=== PATIENT | female | born 1945 | race Caucasian/White ===

== ENCOUNTER 2018-01-01 05:58 | Day surgery (SDC) | payer MEDICARE ==
[2017-12-27 16:21] LABS: BASOPHILS % (AUTO) 0.7 % (0-1); EOSINOPHILS # (AUTO) 0.1 X10'3 (0-0.9); EOSINOPHILS % (AUTO) 1.8 % (0-6); LYMPHOCYTES # (AUTO) 2.7 X10'3 (1.1-4.8); LYMPHOCYTES % (AUTO) 40.4 % (21-51); MEAN CORPUSCULAR HEMOGLOBIN 29.8 PG (27.0-31.0); MEAN CORPUSCULAR HGB CONC 34.4 % (33.0-36.5); MEAN CORPUSCULAR VOLUME 86.6 FL (78-98); MEAN PLATELET VOLUME 8.4 FL (7.4-10.4); MONOCYTES # (AUTO) 0.5 X10'3 (0-0.9); NEUTROPHILS # (AUTO) 3.3 X10'3 (1.8-7.7); NEUTROPHILS % (AUTO) 49.1 % (42-75); PRE OP HEMOGLOBIN 12.7 g/dL (12.0-16.0); PRE OP PLATELET COUNT 238 X10'3 (140-440); RED BLOOD COUNT 4.28 X10'6 (4.20-5.60); RED CELL DISTRIBUTION WIDTH 14.2 % (11.5-14.5)
[2017-12-27 16:38] LABS: ALBUMIN 3.8 G/DL (3.4-5.0); ALKALINE PHOSPHATASE 95 IU/L (46-116); BLOOD UREA NITROGEN 16 MG/DL (7-18); BUN/CREATININE RATIO 18.6 (6.6-38.0); CALCIUM 9.4 MG/DL (8.5-10.1); CHLORIDE 103 MMOL/L (99-107); CREATININE 0.86 MG/DL (0.40-0.90); PRE OP ALT 18 U/L (30-65); PRE OP ANION GAP 9 (8-16); PRE OP AST 16 U/L (10-37); PRE OP BILIRUB, TOTAL 0.4 MG/DL (0.0-1.0); PRE OP GLUCOSE 88 MG/DL (70-104); PRE OP SODIUM 139 MMOL/L (135-145); TOTAL CARBON DIOXIDE 27.3 MMOL/L (24-32); TOTAL PROTEIN 7.6 G/DL (6.4-8.2); eGFR 65 ML/MIN
[2018-01-01] VITALS (16 sets, daily range): BP systolic 104–149; BP diastolic 50–89
[~2018-01-01] VITALS: Ht 167.6 cm; Wt 68.9 kg
[~2018-01-01 05:58] MED LIST: CETI10TA18 PO; DICY10CA14 PO; DIPH25CA6 PO; DOCU100C41 PO; DOXY100C2 PO; FLUT16SP2 BOTHNARES; GLUC1CAP36 PO; LACT1CAP74 PO; LEVO100T PO; MAGN400C PO; MULT-38 PO; POLY1DRO2 OP; PRAV40TA3 PO; RESTASIS EACHEYE; ceFOXitin 2 GM ADDvantage bag 100 ML IV ONE; famotidine 20mg tablet PO ONE; ringers solution, lacted 1,000 ML IV SCH
[2018-01-01] MEDS ORDERED: clindamycin phosphate 40gm vag cream ONE (06:39)
[2018-01-01] MEDS ORDERED: vasoPRESSIN 20 units/ml inj. ONE (06:40)
[2018-01-01] MEDS ORDERED: ceFAZolin 1000mg inj ONE (06:40)
[2018-01-01] MEDS ORDERED: BUPIVAcaine/PF 2.5mg/ml (0.25%) 10ml vial ONE (06:40)
[2018-01-01] MEDS ORDERED: morphine 10mg/ml inj. ONE (06:40)
[2018-01-01] MEDS ORDERED: LIDOcaine 1% 30ml preserv. free vial ONE (06:40)
[2018-01-01] MEDS ORDERED: midazolam 2 mg/2 ml injection ONE (07:50)
[2018-01-01] MEDS ORDERED: fentaNYL/PF 50MCG/1 ML 2ML syringe ONE (07:50)
[2018-01-01] MEDS ORDERED: ondansetron/PF 4mg/2ml inj ONE ×2 (07:51→08:08)
[2018-01-01] MEDS ORDERED: propofol inj 20 ML IV ONE (07:51)
[2018-01-01] MEDS ORDERED: glycopyrrolate 0.2mg/ml inj ONE (07:51)
[2018-01-01] MEDS ORDERED: LIDOcaine 2% (20mg/ml) 5ml vial ONE (07:51)
[2018-01-01] MEDS ORDERED: rocuronium 10mg/ml inj IV ONE (07:51)
[2018-01-01] MEDS ORDERED: dexamethasone sod phosphate 4mg/ml inj. ONE (07:51)
[2018-01-01] MEDS ORDERED: neostigmine methylsulfate 1 MG/ML 10ml vial ONE (08:08)
[2018-01-01] MEDS ORDERED: sevoflurane 250ml liquid IH ONE (08:08)
[2018-01-01] MEDS ORDERED: ringers solution, lacted 1,000 ML IV SCH (08:54)
[2018-01-01] MEDS ORDERED: fentaNYL/PF 50MCG/1 ML 2ML syringe IV PRN ×2 (08:55)
[2018-01-01] MEDS ORDERED: morphine 4 MG/ML inj SYRINge IV PRN ×2 (08:55)
[2018-01-01] MEDS ORDERED: labetalol 20mg/4ml (5mg/ml) syringe IV PRN ×2 (08:55→09:10)
[2018-01-01] MEDS ORDERED: hydrALAZINE 20mg/ml inj. IV PRN (08:55)
[2018-01-01] MEDS ORDERED: ondansetron/PF 4mg/2ml inj IV PRN ×2 (08:55→10:20)
[2018-01-01] MEDS ORDERED: fluoroscein sod 10% (100mg/ml) 5ml vial ONE (09:44)
[2018-01-01] MEDS: ringers solution, lacted 1,000 ML IV SCH ×2 (10:16→17:02)
[2018-01-01] MEDS ORDERED: naloxone 0.4 mg/ml inj IV PRN (10:20)
[2018-01-01] MEDS ORDERED: CADD PCA waste documentation MC PRN (10:20)
[2018-01-01] MEDS ORDERED: diphenhydrAMINE 50 mg/ml inj IV PRN (10:20)
[2018-01-01] MEDS ORDERED: temazepam 15mg capsule PO PRN (10:20)
[2018-01-01] MEDS ORDERED: normal saline 500ml IV soln 500 ML IV PRN (10:20)
[2018-01-01] MEDS ORDERED: HYDROcodone/acetaminophen 5mg/325mg tablet PO PRN ×2 (10:20)
[2018-01-01] MEDS ORDERED: ketorolac tromethamine 15mg/ml inj. IV PRN (10:20)
[2018-01-01] MEDS: HYDROmorphone/NS 1 mg/ml CADD 50 ML IV SCH ×7 (11:15→23:00)
[2018-01-01] MEDS: simethicone 80mg chew tab PO SCH ×2 (13:21→18:00)
[2018-01-01] MEDS ORDERED: aspirin/acetaminophen/caffeine tablet PO PRN (17:25)
[2018-01-01] MEDS: docusate sod 100mg capsule PO SCH (20:00)
[2018-01-01] MEDS: cycloSPORINE 0.05% ophthalmic emulsion EACHEYE SCH (20:00)
[2018-01-01] MEDS ORDERED: pravastatin 40mg tablet PO SCH (21:00)
[2018-01-02] VITALS: BP 136/63
[2018-01-02] MEDS: ringers solution, lacted 1,000 ML IV SCH ×2 (00:30→10:16)
[2018-01-02] MEDS: HYDROmorphone/NS 1 mg/ml CADD 50 ML IV SCH ×8 (01:00→15:00)
[2018-01-02 04:00] VITALS: BP 120/57
[2018-01-02 05:15] LABS: BASOPHILS % (AUTO) 0.4 % (0-1); EOSINOPHILS % (AUTO) 0 % (0-6); HEMOGLOBIN 10.8 g/dl (12.0-16.0); LYMPHOCYTES # (AUTO) 1.3 X10'3 (1.1-4.8); LYMPHOCYTES % (AUTO) 13.2 % (21-51); MEAN CORPUSCULAR HEMOGLOBIN 29.5 PG (27.0-31.0); MEAN CORPUSCULAR HGB CONC 33.5 % (33.0-36.5); MEAN CORPUSCULAR VOLUME 87.8 FL (78-98); MEAN PLATELET VOLUME 9.6 FL (7.4-10.4); MONOCYTES # (AUTO) 0.6 X10'3 (0-0.9); MONOCYTES % (AUTO) 6.7 % (2-12); NEUTROPHILS # (AUTO) 7.5 X10'3 (1.8-7.7); NEUTROPHILS % (AUTO) 79.7 % (42-75); PLATELET COUNT 154 X10'3 (140-440); RED BLOOD COUNT 3.65 X10'6 (4.20-5.60); WHITE BLOOD COUNT 9.5 X10'3 (4.5-11.0)
[2018-01-02] MEDS: docusate sod 100mg capsule PO SCH (07:36)
[2018-01-02] MEDS: cycloSPORINE 0.05% ophthalmic emulsion EACHEYE SCH (07:36)
[2018-01-02] MEDS: simethicone 80mg chew tab PO SCH ×2 (07:36→13:45)
[2018-01-02 07:40] VITALS: BP 133/58
[2018-01-02] MEDS ORDERED: cetirizine 10mg tablet PO SCH (08:00)
[2018-01-02] MEDS ORDERED: pravastatin 40mg tablet PO SCH (08:00)
[2018-01-02] MEDS ORDERED: fluticasone nasal spray 16GM bottle NS SCH (08:00)
[2018-01-02] MEDS ORDERED: levoTHYROXINE 88mcg tablet PO SCH (08:00)
[2018-01-02 11:32] VITALS: BP 128/54
== END 2018-01-02 17:20 | disposition home or self-care (01) ==
LOC: PAS 05:58 → SUR 3N 11:19 → PAS 01-02 17:20
PROVIDERS: ATTEND Specialist
DX: N81.4 Uterovaginal prolapse, unspecified (principal); N73.6 Female pelvic peritoneal adhesions (postinfective); N72 Inflammatory disease of cervix uteri; D09.0 Carcinoma in situ of bladder; N95.0 Postmenopausal bleeding; G43.909 Migraine, unspecified, not intractable, without status migrainosus; E05.00 Thyrotoxicosis with diffuse goiter without thyrotoxic crisis or storm; E03.9 Hypothyroidism, unspecified; M19.90 Unspecified osteoarthritis, unspecified site; Z91.048 Other nonmedicinal substance allergy status; Z90.710 Acquired absence of both cervix and uterus; Z90.49 Acquired absence of other specified parts of digestive tract; Z79.2 Long term (current) use of antibiotics; Z79.891 Long term (current) use of opiate analgesic; Z72.89 Other problems related to lifestyle; Z98.890 Other specified postprocedural states; Z79.899 Other long term (current) drug therapy
CPT/HCPCS: 36415; 52204; 57283; 58552; 80053; 84443; 85025; 85610; 85730; 86885; 86900; 86901; A4315; A4355; J0690; J0694; J1100; J1170; J2001; J2250; J2270; J2405; J2704; J2710; J3010; J3490; J7030; J7120; 88305; 88307; A6250; A7000